=== PATIENT | male | born 1955 | race Caucasian/White ===

== ENCOUNTER 2016-09-28 17:39 | Emergency (ER) | payer OTHER ==
[~2016-09-28] VITALS: Ht 180.3 cm; Wt 106.0 kg
[~2016-09-28 17:39] MED LIST: ATIVAN1 MG PO; BENADRYL50 MG PO; DECADRON4 MG PO; LIPITOR10 MG PO; NORPRAMIN150 MG PO; PREDNISONE10 MG PO; PREVACID30 MG PO
[2016-09-28] MEDS ORDERED: DESIPRAMINE HC150 MG PO (18:35)
[2016-09-28] MEDS ORDERED: ATIVAN1 MG PO (18:35)
[2016-09-28] MEDS ORDERED: LIPITOR10 MG PO (18:35)
[2016-09-28] MEDS ORDERED: PREVACID30 MG PO (18:35)
[2016-09-28] MEDS ORDERED: LEVAQUIN500 MG PO (19:41)
[2016-09-28] MEDS ORDERED: NAPROSYN500 MG PO (19:51)
[2016-09-28] MEDS ORDERED: FLONASE16 G1 BOTH NARES (19:51)
[2016-09-28] MEDS ORDERED: PREDNISONE20 MG PO (19:51)
[2016-09-28 21:14] VITALS: BP 132/86
== END 2016-09-28 21:15 | disposition home or self-care (01) ==
LOC: EME 17:39
DX: J01.80 Other acute sinusitis (principal)
CPT/HCPCS: 70450; 99281; 99284